=== PATIENT | male | born 1955 | race Caucasian/White ===

== ENCOUNTER 2018-05-24 11:39 | Inpatient (IN) | payer OTHER ==
[2018-05-24 12:00] LABS: #Basophils 0.1 thou/uL (0.0-0.2); #Eosinphils 0.1 thou/uL (0.0-0.7); #Lymphocytes 1.1 thou/uL (1.20-3.40); #Monocytes 0.6 thou/uL (0.11-0.59); #Neutrophils 11.7 thou/uL (1.40-6.50); %Basophils 0.9 % (0.0-1.0); %Eosinophils 0.7 % (0.0-10.0); %Neutrophils 86.4 % (42.0-75.0); Hemoglobin 11.7 g/dL (14.0-18.0); Mean Corpuscular HGB CONC 33.7 g/dL (32.0-36.0); Mean Corpuscular Hemoglobin 32.7 pg (27.0-31.0); Mean Platelet Volume 6.6 fL (7.4-10.4); Platelet Count 298 thou/uL (130-400); RBC Distribution Width 11.4 % (11.5-14.5); Red Blood Cell (RBC) Count 3.57 mill/uL (4.70-6.10); White Blood Cell (WBC) Count 13.6 thou/uL (4.8-10.8)
[2018-05-24] MEDS ORDERED: Morphine 4 MG/ML VIAL ONE ×2 (12:12→13:45)
[2018-05-24 12:16] LABS: Anion Gap 13 mmol/L (10-20); BUN (Urea Nitrogen) 31 mg/dL (8.4-25.7); Calc. Creatinine Clearance 0 mL/min (70-130); Calcium 9.1 mg/dL (7.8-10.44); Carbon Dioxide 21 mmol/L (23-31); Chloride 109 mmol/L (98-107); Estimated GFR-MDRD 37; Glucose 151 mg/dL (80-115); Potassium 4.1 mmol/L (3.5-5.1); Sodium 139 mmol/L (136-145)
[2018-05-24] MEDS ORDERED: Lorazepam 2 MG/ML VIAL ONE (12:42)
[2018-05-24] MEDS ORDERED: Dexamethasone 10 MG/ML VIAL ONE (12:55)
--- NOTE | 2018-05-24 13:34 | CT ---
CT CERVICAL SPINE WITH SEGUNDO AND SAGITTAL REFORMATIONS: HISTORY: Level II trauma. FINDINGS: Degenerative changes are present in the cervical spine. No acute fracture or subluxation is identifi ed. No facet malalignment is seen. Discussed over the telephone with the ER physician, Dr. Stoney Salinas at 12:23 p.m. CODE JOANNE POS: [facility]
--- NOTE | 2018-05-24 13:36 | CT ---
CT BRAIN WITHOUT CONTRAST: HISTORY: Level II trauma. FINDINGS: No evidence of infarct, hemorrhage, midline shift, or abnormal extraaxial fluid collections is seen. The ventricular size is normal and the basilar cisterns patent. The bony calvarium is intact. Ther e is mucosal disease in the paranasal sinuses. IMPRESSION: No CT evidence of acute intracranial process. Discussed over the telephone with ER physician, Dr. Salinas, at 12:23 p.m. CODE CR POS: [facility]
--- NOTE | 2018-05-24 13:39 | CT ---
CT THORACIC SPINE WITH CORONAL AND SAGITTAL REFORMATIONS: HISTORY: Level II trauma. FINDINGS: There is a 1 cm low-density lesion in the left lobe of the thyroid gland which would be better evalua georges with an ultrasound. There are degenerative changes in the thoracic spine. No compression fracture or subluxation is seen . No facet malalignment is noted. On a single image (image 24 series 401), there is a lucency in the right superior articular process o f T12 which could represent a nondisplaced fracture. The visualized lung bennett are clear. Discussed over the telephone with ER physician, Dr. Stoney Salinas at 12:23 p.m. CODE JOANNE POS: [facility]
--- NOTE | 2018-05-24 14:48 | HP ---
DATE OF ADMISSION: 05/24/2018 REQUESTING PHYSICIAN: Dr. Salinas. ATTENDING SURGEON: Dr. Smalls. CONSULTATION: Neurosurgery, Dr. Carpenter. HISTORY OF PRESENT ILLNESS: The patient is a 62-year-old man who was in a deer stand appro ximately 10 feet up when he was trying to come down and started to fall. He was able to slow himself , but still end up landing and striking his forehead on what he believes was the ground hyperextendin g his neck. He had a period of approximately 30 minutes of paralysis of his upper and lower extremit ies. His lower extremities regained function. He was able to get help and was brought to the emerge ncy department where he underwent evaluation and examination and was noted to have likely central cor d syndrome. His CT of his brain, C-spine did not show any abnormalities. While in the emergency mary m, he did start to have function return to his upper extremities with extreme hyperesthesias noted al so. ALLERGIES: None. CURRENT MEDICATIONS: Aspirin, allopurinol, atorvastatin, fenofibrate, glucosamine, Humalog, Meloxica m, metoprolol, [place], promethazine. PAST MEDICAL HISTORY: Diabetes, hyperlipidemia, hypertension, chronic kidney disease, kidney stones. PAST SURGICAL HISTORY: Cardiac stent. SOCIAL HISTORY: The patient lives at home with his spouse. He denies drug, tobacco or alcohol use. REVIEW OF SYSTEMS: Ten-point review of system is negative, unless otherwise stated. PHYSICAL EXAMINATION: VITAL SIGNS: Blood pressure 117/73, heart rate 72, respirations 16, oxygen saturation is 97% on room air, temperature 98.2. GENERAL: The patient was actually examined in the MRI area. He was awake, alert, and oriented and o nly unclear about the details surrounding how long he may have or if he had any loss of consciousness . Otherwise, his [place] coma scale was 15. HEENT: Head: Patient has contusion to his forehead. Eyes: Extraocular motion intact. PERRLA bila terally. Ears are atraumatic without discharge. Nose is atraumatic with discharge. Oropharynx is c lear. NECK: Immobilized in a cervical collar which we will change to an [place] collar. LUNGS: Clear to auscultation with good inspiratory and expiratory effort. HEART: Regular rate and rhythm. ABDOMEN: Soft, flat, nontender with active bowel sounds. GENITOURINARY: Pelvis is stable. EXTREMITIES: The patient has 5/5 strength in his lower extremities. All extremities have capillary refill less than 3 seconds and 2+ pulses. The upper extremities have 3-4/5 strength, but has signifi cant hyperesthesias. Even gentle touch is very painful to the patient. BACK: By report is atraumatic and nontender. LABORATORY DATA: White blood cell count 13.6, hemoglobin 11.7, hematocrit 34.7, platelets 298. [place] um 139, potassium 4.1, chloride 109, CO2 21, BUN 31, creatinine 1.84, glucose 151. RADIOGRAPHIC FINDINGS: CT of the brain without contrast showed no evidence of intracranial process. CT of the C-spine without contrast shows degenerative changes are present in the cervical spine, no acute fracture or subluxation is identified. CT of the thoracic spine shows degenerative changes, no compression fracture or subluxation is seen. No facet malalignment is noted. Results of cervical a nd thoracic spine MRIs are pending. ASSESSMENT AND PLAN: 1. Status post fall from tree stand approximately 10 feet. 2. Forehead contusion. 3. Transient global paralysis, resolving. 4. Likely a central cord contusion. Plan will be to admit the patient to the surgical floor. He has been given one dose of Decadron in [facility] emergency department. This will be continued upstairs. We will also start him on pain control to include gabapentin and await definitive plan from Neurosurgery. The evaluation, examination, labora tory and radiographic findings will be discussed with Dr. Smalls after this dictation. The patient wa s also evaluated by Dr. Carpenter's PA, Dahlia Sykes prior to going to the surgical floor.
[2018-05-24 15:13] VITALS: BMI 28.3
[2018-05-24] MEDS ORDERED: Dextrose 5% in Water 1,000 ML IV PRN (15:14)
[2018-05-24] MEDS ORDERED: Dextrose 50% Abboject 50 ML SYRINGE SLOW IVP PRN (15:14)
[2018-05-24] MEDS ORDERED: Ondansetron ODT 4 MG TAB PO PRN (15:14)
[2018-05-24] MEDS ORDERED: Ondansetron PF 4 MG/2 ML Vial IVP PRN (15:14)
--- NOTE | 2018-05-24 15:31 | MRI ---
MRI THORACIC SPINE PERFORMED WITHOUT CONTRAST ENHANCEMENT: HISTORY: The patient presented to the emergency department with a fall while getting down from an elevated cinda r stand. Landed on head. Unable to move arms and legs for approximately 30 minutes. Still with per sistent tingling. FINDINGS: The thoracic vertebral bodies are normal in height. The disk spaces all appear well preserved, witho ut any significant arthritic change. I do not see any abnormal marrow edema change. No signs of any compression fractures. The cord is normal in caliber and appears to be of normal signal change. Th ere is no canal or foraminal stenosis. No paravertebral soft tissue findings. IMPRESSION: Unremarkable MRI of the thoracic spine. POS: [facility]
[2018-05-24 15:41] LABS: INR-International Normal Ratio 1.1; Prothrombin Time 13.9 SEC (12.0-14.7)
[2018-05-24] MEDS ORDERED: Gabapentin 300 MG CAP PO SCH (15:45)
--- NOTE | 2018-05-24 15:46 | MRI ---
MRI OF CERVICAL SPINE PERFORMED WITHOUT CONTRAST ENHANCEMENT: HISTORY: Patient with a fall with trauma and neck pain. Numbness and tingling in arms and legs immediately af ter fall. COMPARISON: A CT examination done earlier today. The vertebral bodies maintain normal height and disk space height appears fairly well maintained. Th ere is evidence of a soft tissue injury. This includes a small collection of prevertebral fluid dens ity which is probably representing some blood products. It has somewhat mixed signal change on the T 1 sequence. This extends from a C2 to the C5 level. There is evidence of posterior soft tissue inju ry with evidence of injury of the interspinous ligaments at C2-3, C3-4, C4-5, and C5-6. These change s appear more right-sided. There is some mild increased signal change within the cord from the C2-3 to the C5-6 level. C2-3: Unremarkable. C3-4: There is a posterior osteophytic bar at this level. There is a mild degree of canal stenosis and mild left foraminal narrowing. C4-5: There is more prominent posterior osteophytic change at this level with fairly severe canal st enosis related to this broad-based posterior ossific bar. This is slightly more right-sided . There is severe right and moderately severe left foraminal narrowing. C5-6: The canal shows a mild to moderate degree of stenosis with posterior osteophytic change. Ther e is bilateral foraminal narrowing which is worse on the right. C6-7: No significant canal or foraminal stenosis at this level. C7-T1: Unremarkable. IMPRESSION: Evidence of fairly extensive soft tissue injury. There are some prevertebral soft tissue changes whi ch probably represent some minimal blood products and there is evidence of fairly extensive posterior soft tissue injury. This includes injury at the interspinous ligament level at the C2-3, C3-4, C4-5 , and C5-6 levels. Also edema changes which are more right-sided and around the right-sided facets a t these levels. There is also some somewhat inhomogeneous but increased signal change within the cor d which begins at approximately C2-3 and goes to approximately C5-6 suggesting some element of cord c ontusion. There is canal stenosis which is particularly severe at the C5-6 level related to prominen t posterior osteophytic bar. POS: [facility]
[2018-05-24] MEDS: Sodium Chloride 0.9% 1,000 ML IV SCH (15:47)
[2018-05-24] MEDS ORDERED: Morphine 2 MG/ML SYRINGE IVP PRN (16:00)
[2018-05-24] MEDS ORDERED: Ketorolac Tromethamine 30 MG/ML VIAL IVP PRN (17:03)
[2018-05-24] MEDS: Acetaminophen 1,000 MG in Premix Bag 1 BAG IVPB SCH ×2 (17:20→22:22)
[2018-05-24] MEDS: Dexamethasone 4 mg/ml Vial SLOW IVP SCH (17:21)
--- NOTE | 2018-05-24 18:37 | CON ---
DATE OF CONSULTATION: 05/24/2018 ATTENDING PHYSICIAN: Dr. Jaren Carpenter. HISTORY OF PRESENT ILLNESS: The patient is a 62-year-old male with a past medical history of coronary artery disease, acute WA on 81 mg aspirin, hypertension, hyperlipidemia, type 2 diabetes who presented to the emergency department per EMS after a fall from a deer stand. The patient reports he was getting out of the deer stand when he attempts to grab something and lost his footing, causing him to fall and land on his head. He reports initially after this injury, he was unable to move his arms or legs for approximately 30 minutes. Since then he has regained function and sensation to his lower extremities but continues to have weakness, burning sensation, and hypersensitivity to the upper extremities. CT of the head and cervical spine were negative for acute changes; however, he does have significant degenerative changes at C4-C5 and C5-C6 on the CT. MRI of the cervical spine was also done which was notable for T2 signal changes from C2-C6 with evidence of cord contusion and central canal stenosis which is most pronounced at C4-5 and C5-6. PAST MEDICAL HISTORY: Hypertension, hyperlipidemia, diabetes, coronary artery disease with prior acute WA. PAST SURGICAL HISTORY: Cardiac stents. SOCIAL HISTORY: The patient does not smoke, drink or use any drugs. REVIEW OF SYSTEMS: Per HPI. ALLERGIES: The patient has no known drug allergies. PHYSICAL EXAMINATION: VITAL SIGNS: Stable. GCS of 15. Awake, alert, in no acute distress. HEAD: The patient has an abrasion to the apex of the head. EYES: PERRLA. Extraocular movements intact. ENT: Oral mucosa is pink, intact and moist. Patient has a normal voice. NECK: He is currently wearing a rigid cervical collar. I did not attempt to remove or palpate the C spine considering his underlying injury. RESPIRATORY: He has symmetric chest expansion, no evidence of dyspnea. CARDIOVASCULAR: Regular rate and rhythm. MUSCULOSKELETAL: He has free active range of motion of the lower extremities, 5 /5 strength to lower extremities. In the upper extremities, he is generally weak throughout but he is able to java integration developer, flex and extend at the elbow and lift his arms overhead. His weakness throughout is 4/5. He is hyporeflexive throughout. Negative Gage's. Negative clonus. NEURO: A and O x4. He is hypersensitive to light touch in the upper extremities. He is weak in the upper extremities 4/5. ASSESSMENT AND PLAN: This is a 62-year-old male status post mechanical fall with new upper extremity pain, weakness, and sensation changes and evidence of central cord syndrome on MRI. He has been given 10 of Decadron in the emergency department and will continue this at 4mg Q6h. He has been placed in an [place] collar which we have recommended that he wear it all times. He will be admitted to the Trauma Service for pain control and likely need for inpatient rehabilitation at some point. Dr. Carpenter is in agreement and will also see the patient. NAJMA
--- NOTE | 2018-05-24 18:56 | HP ---
CHIEF COMPLAINT: Fall. HISTORY: A 62-year-old male who was in a deer stand at approximately 10 feet from the ground when he slid down fell. He struck a foot pole at about 5 feet down that punctured his upper left thigh, the n fell another 5 foot hyperextending his neck. He was paralyzed for about 20-30 minutes, regained hi s sensation in his lower extremities, but has developed very severe hyperesthesias and pain in the up per extremities, shoulder and neck. PAST MEDICAL HISTORY: Significant for hypertension, diabetes, chronic renal insufficiency and hyperl ipidemia. He has had a history of myocardial infarction last year. PAST SURGICAL HISTORY: He has had leg surgery, kidney stone surgery, had a coronary stent last year. MEDICATIONS: Aspirin, allopurinol, atorvastatin, fenofibric, glucosamine, Humalog, Meloxicam, metopr olol, [place], and promethazine. ALLERGIES: No known drug allergies. 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 No tobacco. He is . Social alcohol. FAMILY HISTORY: Diabetes and strokes. PHYSICAL EXAMINATION: VITAL SIGNS: Temperature 98.1, pulse 86, blood pressure 153/90. GENERAL APPEARANCE: He is a well-developed, well-nourished male. He is lying very still. He is lara ke and alert, GCS of 15. HEENT: He has some abrasions to his forehead. He has male pattern baldness. Pupils equal, round, a nd reactive. Extraocular motor intact. Pharynx is clear. Good dentition. NECK: Supple, no thyroid masses. He is in a cervical collar. His trachea is midline. CHEST: Unremarkable. LUNGS: Clear. HEART: Regular rate and rhythm. ABDOMEN: Soft, nondistended and nontender. Pelvis is unremarkable. Circumcised male, no blood at t he meatus. EXTREMITIES: Upper extremities any motion induces severe pain in both upper extremities. Lower extr emities, he has got 1.5 cm deep puncture wound of the posterior upper thigh. It is not currently ble eding at this time. LABORATORY DATA AND IMAGING DATA: White count 13.6, hemoglobin and hematocrit 11 and 34, platelet co unt 298. Electrolytes; elevated glucose of 151, creatinine 1.84. CT of the brain negative. CT of C -spine negative. CT of the thoracic spine, questionable T12 fracture, nondisplaced. ASSESSMENT: Possible central cord contusion. Plan per Neurosurgery MRI.
[2018-05-24] MEDS: Morphine 4 MG/ML VIAL SLOW IVP PRN ×3 (19:24→22:21)
[2018-05-24] MEDS: Gabapentin 300 MG CAP PO SCH (20:53)
[2018-05-24] MEDS: Tamsulosin HCl 0.4 MG CAP PO SCH (20:54)
[2018-05-24] MEDS: Insulin Regular 300 UNITS/3 ML VIAL SC PRN (20:54)
[2018-05-25] MEDS: Morphine 4 MG/ML VIAL SLOW IVP PRN ×8 (00:20→21:02)
[2018-05-25] MEDS: Dexamethasone 4 mg/ml Vial SLOW IVP SCH ×3 (00:20→17:46)
[2018-05-25] MEDS: Sodium Chloride 0.9% 1,000 ML IV SCH (04:43)
[2018-05-25] MEDS: Acetaminophen 1,000 MG in Premix Bag 1 BAG IVPB SCH (05:38)
[2018-05-25 05:46] LABS: Anion Gap 10 mmol/L (10-20); BUN (Urea Nitrogen) 40 mg/dL (8.4-25.7); Calc. Creatinine Clearance 40 mL/min (70-130); Calcium 8.5 mg/dL (7.8-10.44); Carbon Dioxide 23 mmol/L (23-31); Chloride 107 mmol/L (98-107); Estimated GFR-MDRD 30; Glucose 158 mg/dL (80-115); Magnesium 1.3 mg/dL (1.6-2.6); Phosphorus 2.2 mg/dL (2.3-4.7); Potassium 4.3 mmol/L (3.5-5.1); Sodium 136 mmol/L (136-145)
[2018-05-25 05:53] LABS: #Lymphocytes 0.6 thou/uL (1.20-3.40); #Monocytes 0.2 thou/uL (0.11-0.59); #Neutrophils 8.8 thou/uL (1.40-6.50); %Basophils 0.1 % (0.0-1.0); %Eosinophils 0.2 % (0.0-10.0); %Lymphocytes 5.8 % (21.0-51.0); %Monocytes 2.2 % (0.0-10.0); %Neutrophils 91.8 % (42.0-75.0); Hemoglobin 10.3 g/dL (14.0-18.0); Mean Corpuscular HGB CONC 33.9 g/dL (32.0-36.0); Mean Corpuscular Hemoglobin 32.9 pg (27.0-31.0); Mean Corpuscular Volume 97.2 fL (78.0-98.0); Mean Platelet Volume 6.7 fL (7.4-10.4); Platelet Count 254 thou/uL (130-400); RBC Distribution Width 11.4 % (11.5-14.5); Red Blood Cell (RBC) Count 3.14 mill/uL (4.70-6.10); White Blood Cell (WBC) Count 9.6 thou/uL (4.8-10.8)
[2018-05-25] MEDS: Gabapentin 300 MG CAP PO SCH ×3 (07:59→21:02)
[2018-05-25] MEDS: Atorvastatin Calcium 40 MG TAB PO SCH (07:59)
[2018-05-25] MEDS: Fenofibrate Nanocrystallized 145 MG TAB PO SCH (07:59)
[2018-05-25] MEDS: Allopurinol 300 MG TAB PO SCH (07:59)
[2018-05-25] MEDS ORDERED: Sodium Phosphate 20 MMOL, Magnesium Sulfate 2 GM in Sodium Chloride 0.9% 250 ML 250 ML IVPB SCH (08:30)
--- NOTE | 2018-05-25 08:44 | CON ---
DATE OF SERVICE: 04/24/2018 SUBJECTIVE: The patient was seen and examined and agreed with Dahlia Sykes's evaluation on 05/24/2018. The patient is a 62-year-old man with coronary artery disease on aspirin, who fell out of a deer stand 10 feet, striking his head. He reports 30 minutes of quadriparesis, which gradually improved upon presentation in the emergency room. Currently, he seems to have full strength and sensation in the lower extremities and has reasonably good motor function in the upper extremities level. The hands do still seem impaired to me. He has burning dysesthesias of the upper extremities which is also improved dramatically. He remains on Decadron. The MRI scan shows significant cervical stenosis most pronounced between C4 and C6. There is no evidence of acute bony injury. On the MRI scan, he has obvious contusion to the spinal cord. IMPRESSION AND PLAN: Spinal cord contusion and central cord syndrome related to preexisting cervical stenosis with a superimposed trauma. He is having an excellent recovery so far and I expect this will continue with respect to the central cord syndrome. Given the extent of the cervical stenosis, I do recommend decompression to promote recovery and prevent recurrence. I would recommend accomplishing this by anterior and posterior C4 through C6 decompression and fusion. I discussed the indications, risks, benefits, and alternatives of the procedure with the patient and his family. They expressed understanding and wished to proceed. We will plan to proceed on Friday. We will reduce his Decadron and hold his aspirin. NAJMA
[2018-05-25] MEDS ORDERED: GLUCOSAMINE SULFATE 2000 MG PO SCH (09:00)
[2018-05-25] MEDS ORDERED: Acetaminophen 500 MG TAB PO PRN (09:43)
--- NOTE | 2018-05-25 09:57 | PRG ---
DATE OF SERVICE: 05/25/2018 HISTORY OF PRESENT ILLNESS: Mr. Markham is a 62-year-old man with a cervical spine cord co ntusion and resultant central cord syndrome. SUBJECTIVE: This morning, the patient is awake and alert. [place] coma scale is 15. He reports imp roving function of his extremities. He had significant paresthesia yesterday involving the upper ext remities that is resolving. He rates his pain this morning at 5/10. OBJECTIVE: VITAL SIGNS: Today includes blood pressure 135/83, pulse is 82, respiratory rate is 20, temperature is 97.4 degrees Fahrenheit, oxygen saturation is 96% on room air. HEENT: Pupils equal, round, and reactive to light and accommodation. Extraocular muscles are intact bilaterally. No sclerae icterus present. HEART: Reveals regular rate and rhythm, no murmurs or gallops auscultated. CHEST: Clear to auscultation bilaterally. Breathing is regular and unlabored. ABDOMEN: Soft, nontender, nondistended. EXTREMITIES: Reveals 2+ radial and pedal pulses bilaterally. No ankle edema is present. MUSCULOSKELETAL: Reveals 5/5 muscle strength in bilateral lower extremities. EXTREMITIES: Upper extremities 3/5 and improving. LABORATORY DATA: Today includes a CBC with 9600 white blood cells, hemoglobin and hematocrit stable at 10.3 and 30.5 respectively. Platelet count is 254,000. Metabolic profile: Sodium 136, potassium is 4.3, chloride is 107, bicarbonate is 23, BUN 40, creatin ine is 2.24, glucose is 158, magnesium 1.3, phosphorus is 2.2. IMPRESSION: 1. Post-injury day #1 status post fall. 2. Cervical spinal cord contusion with central cord syndrome. 3. Acute hypoalbuminemia. 4. Acute hypophosphatemia. PLAN: 1. Correct abnormal electrolytes. 2. Continue to increase activity per physical and occupational therapy. 3. Anticipate cervical spine decompression and fusion per Neurosurgery in the next few days.
[2018-05-25] MEDS: traMADol HCl 50 MG TAB PO SCH ×2 (10:35→17:45)
[2018-05-25] MEDS: Insulin Regular 300 UNITS/3 ML VIAL SC PRN ×2 (13:08→15:43)
[2018-05-25] MEDS: Tamsulosin HCl 0.4 MG CAP PO SCH (21:02)
[2018-05-26] MEDS: Morphine 4 MG/ML VIAL SLOW IVP PRN ×10 (00:21→21:13)
[2018-05-26] MEDS: traMADol HCl 50 MG TAB PO SCH ×3 (02:01→17:04)
[2018-05-26 06:10] LABS: #Lymphocytes 1.4 thou/uL (1.20-3.40); #Monocytes 0.6 thou/uL (0.11-0.59); #Neutrophils 7.9 thou/uL (1.40-6.50); %Basophils 0.4 % (0.0-1.0); %Eosinophils 0.2 % (0.0-10.0); %Lymphocytes 13.5 % (21.0-51.0); %Monocytes 6.3 % (0.0-10.0); %Neutrophils 79.6 % (42.0-75.0); Hemoglobin 9.6 g/dL (14.0-18.0); Mean Corpuscular HGB CONC 33.9 g/dL (32.0-36.0); Mean Corpuscular Hemoglobin 33.2 pg (27.0-31.0); Mean Corpuscular Volume 97.9 fL (78.0-98.0); Mean Platelet Volume 6.8 fL (7.4-10.4); Platelet Count 233 thou/uL (130-400); RBC Distribution Width 11.5 % (11.5-14.5); Red Blood Cell (RBC) Count 2.89 mill/uL (4.70-6.10)
[2018-05-26] MEDS: Dexamethasone 4 mg/ml Vial SLOW IVP SCH ×2 (06:12→17:03)
[2018-05-26 06:18] LABS: Anion Gap 9 mmol/L (10-20); BUN (Urea Nitrogen) 45 mg/dL (8.4-25.7); Calc. Creatinine Clearance 46 mL/min (70-130); Calcium 8.3 mg/dL (7.8-10.44); Carbon Dioxide 25 mmol/L (23-31); Chloride 106 mmol/L (98-107); Estimated GFR-MDRD 35; Glucose 117 mg/dL (80-115); Magnesium 2.1 mg/dL (1.6-2.6); Phosphorus 2.9 mg/dL (2.3-4.7); Potassium 4.3 mmol/L (3.5-5.1); Sodium 136 mmol/L (136-145)
[2018-05-26] MEDS ORDERED: Gabapentin 300 MG CAP PO SCH (09:00)
[2018-05-26] MEDS: Fenofibrate Nanocrystallized 145 MG TAB PO SCH (09:13)
[2018-05-26] MEDS: Allopurinol 300 MG TAB PO SCH (09:14)
[2018-05-26] MEDS: Atorvastatin Calcium 40 MG TAB PO SCH (09:14)
[2018-05-26] MEDS: Gabapentin 300 MG CAP PO SCH (09:23)
--- NOTE | 2018-05-26 11:55 | PRG-2 ---
DATE OF SERVICE: 05/26/2018 HPI: Mr. Markham is a 62-year-old male with a cervical spine cord contusion and central cord syndrome. SUBJECTIVE: This morning, the patient is awake and alert. GCS 15. The patient still complains of pain in his upper extremities. He continues to have significant paresthesias. The patient's pain is being controlled with gabapentin. Patient complained of hesitancy with urination. OBJECTIVE: VITAL SIGNS: Temperature 97.8, pulse 77, respirations 18, O2 sat 95 on room air , BP 131/83. HEENT: Pupils equal, round and reactive to light and accommodation. Extraocular muscles intact bilaterally. No scleral icterus. CARDIOVASCULAR: Regular rate and rhythm. No murmurs, rubs or gallops. RESPIRATORY: Clear to auscultation bilaterally. Bilateral symmetrical chest rise. ABDOMEN: Soft, nontender, nondistended. EXTREMITIES: 2+ radial and pedal pulses bilaterally. No ankle edema present. MUSCULOSKELETAL: 5/5 muscle strength in bilateral lower extremities. Upper extremities, 3/5 strength and improving. LABORATORY DATA: WBCs 10, hemoglobin 9.6, hematocrit 28.3, platelet count 233, 000. Sodium 136, potassium 4.3, BUN 45, creatinine 1.93. Calcium, phosphorus and magnesium within normal limits. ASSESSMENT: 1. Post injury day number 2, status post fall. 2. Cervical spinal cord contusion with central cord syndrome. 3. Acute hypoalbuminemia. 4. Acute hypophosphatemia, resolved. PLAN: We will continue to correct abnormal electrolytes as needed. We will continue to increase activity per physical and occupational therapy. Will continue to closely monitor urinary output. Patient started on flomax. Bladder scan nml. Started patient on lyrica for parasthesia pain in upper extremities. Per Neurosurgery, anticipate cervical spine decompression and fusion tomorrow. We will continue to follow the patient and continue with pain control management. The patient was seen and examined by Dr. Devine during morning rounds. The plan was discussed with the patient and family at the bedside. Dr. Devine answered their questions. NAJMA
--- NOTE | 2018-05-26 12:46 | PQF ---
DATE: 05-26-18 ATTN: DR. RED BOUDREAUX / DR. BETHANY BEARDEN Please exercise your independent, professional judgment in responding to the clarification form. Clinical indicators are provided on the bottom of this form for your review Please check appropriate box(s): [ ] Acute Renal Failure (ARF) / Acute Kidney Injury (MIKAELA) [ X ] Acute on Chronic Renal Failure please specify Stage of CKD __III (see below) [ ] CKD without ARF/MIKAELA please specify Stage of CKD [ ] Other diagnosis [ ] Unable to determine In addition, please specify: Present on Admission (POA): [ X] Yes [ ] No [ ] Unable to determine National Kidney Foundation Guidelines for CKD Staging Stage I Kidney damage with normal or increased GFR GFR > 90 Stage II Kidney damage with mildly decreased GFR GFR 60-89 Stage III Kidney damage with moderately decreased GFR GFR 30-59 Stage IV Kidney damage with severely decreased GFR GFR 16-29 Stage V Kidney failure GFR<15 ESRD End Stage Renal Disease On dialysis Acute Renal Failure/Acute Kidney Failure defined as: Increases in SCr by (>) 0.3 mg/dl within 48 hours OR- Increases in SCr by (>) 1.5 times baseline, known or presumed to have occurred within the prior 7 days OR- Urine volume < 0.5 ml/kg/hour for 6 hours (KDIGO supplement 2012 for RIFLE/LULÚ criteria) For continuity of documentation, please document condition throughout progress notes and discharge summary. Thank You. CLINICAL INDICATORS - SIGNS / SYMPTOMS / LABS ER: H/O DM, 36% KIDNEY FUNCTION, MS, HTN H&P: H/O DM, HLD, HTN, CKD, KIDNEY STONES GFR: 05-24-18: 37 05-25-18: 30 05-26-18: 35 CREATININE: 05-24-18: 1.84 05-25-18: 2.2 05-26-18: 1.93 BUN: 05-24-18: 31 05-25-18: 40 18: 45 RISK FACTORS: ER: HX DM, 36% KIDNEY FUNCTION, MS, KIDNEY STONES, HTN TREATMENTS: MAR: 05-24-18: NS IVF (This form is maintained as a part of the permanent medical record) 2014 [employer]. All Rights Reserved SID [email or web address] Office: [phone] [facility]
[2018-05-26] MEDS: Insulin Regular 300 UNITS/3 ML VIAL SC PRN ×3 (13:00→22:39)
[2018-05-26] MEDS: Pregabalin 75 MG CAP PO SCH (21:11)
[2018-05-26] MEDS: Tamsulosin HCl 0.4 MG CAP PO SCH (21:15)
[2018-05-27] MEDS: Morphine 4 MG/ML VIAL SLOW IVP PRN ×7 (00:35→20:10)
[2018-05-27] MEDS: traMADol HCl 50 MG TAB PO SCH ×2 (02:49→10:00)
[2018-05-27] MEDS: Dexamethasone 4 mg/ml Vial SLOW IVP SCH ×2 (05:47→17:26)
[2018-05-27] MEDS ORDERED: Sodium Chloride 0.9% 10 ML ONE (06:24)
[2018-05-27] MEDS ORDERED: Bacitracin Zinc Ointment 30 gm TUBE ONE (06:41)
[2018-05-27] MEDS ORDERED: CEFAZOLIN 2 GM/50 ML BAG ONE (06:44)
[2018-05-27] MEDS ORDERED: Midazolam HCl 2 mg/2 ml Vial ONE (07:07)
[2018-05-27] MEDS ORDERED: Fentanyl 100 MCG/2 ML VIAL ONE ×4 (07:07→10:29)
[2018-05-27] MEDS ORDERED: Metoclopramide HCl 10 MG/2 ML VIAL ONE (08:19)
[2018-05-27] MEDS ORDERED: Glycopyrrolate 0.2 MG/ML 5 ML SYRINGE ONE (08:19)
[2018-05-27] MEDS ORDERED: Ondansetron PF 4 MG/2 ML Vial ONE (08:19)
[2018-05-27] MEDS ORDERED: Lidocaine 1% PF 5 ML VIAL ONE (08:19)
[2018-05-27] MEDS ORDERED: PHENYLEPHRINE-NS 100 MCG/ML 10 ML SYRINGE ONE (08:19)
[2018-05-27] MEDS ORDERED: PROPOFOL 200 MG/20 ML VIAL ONE (08:19)
[2018-05-27] MEDS ORDERED: Phenylephrine HCL 10 MG/ML VIAL ONE (08:55)
[2018-05-27] MEDS ORDERED: Promethazine HCl 25 MG/ML VIAL SLOW IVP PRN (10:10)
[2018-05-27] MEDS ORDERED: Meperidine HCl/PF 25 MG/ML VIAL SLOW IVP PRN (10:10)
[2018-05-27] MEDS ORDERED: Ondansetron HCl/PF 4 MG/2 ML Vial IVP PRN (10:10)
[2018-05-27] MEDS ORDERED: PACU-Morphine 4MG/ML VIAL SLOW IVP PRN (10:10)
[2018-05-27] MEDS ORDERED: Promethazine HCl 25 MG/ML VIAL IM PRN (10:10)
[2018-05-27] MEDS ORDERED: Morphine Sulfate 2 MG/ML SYRINGE SLOW IVP PRN (10:10)
[2018-05-27] MEDS ORDERED: HYDROmorphone 2 MG/ML VIAL SLOW IVP PRN (10:10)
--- NOTE | 2018-05-27 11:15 | OP ---
DATE OF PROCEDURE: 05/27/2018 SURGEON: Jose Carpenter M.D. SHEETER MACHINE OPERATOR: Bell Antony PROCEDURE: Anterior cervical discectomy C4-5 and C5-6, interbody arthrodesis, intravertebral biomech anical device, local morselized autograft, demineralized bone matrix, anterior titanium instrumentati on C4-C6, posterior approach C4-C6 laminectomies, posterolateral arthrodesis C4-C6, demineralized bon e matrix, local morselized autograft, lateral mass screws C4-C6. PROCEDURE IN DETAIL: The patient was brought to the operating room and intubated. He was positioned supine with head in modest extension on a gel-filled donut. Incision was made in the right precervi fidel area and dissecting medial to the sternocleidomastoid muscle, identified the anterior cervical sp ine and our level was confirmed by x-ray. We debrided anterior osteophytes, placed distraction from C4-C6 and using the operating microscope and microdissection techniques, completely decompressed the spinal cord, removing the intravertebral disks beneath the level of the posterior longitudinal ligame nt. The bony endplates were then decorticated for the purpose of arthrodesis and appropriately sized intravertebral biomechanical PEEK device was brought into the field, filled with demineralized bone matrix, local morselized autograft, and tapped into place securely at C4-5 and C5-6. Next, an anteri or plate was brought in the field and secured to C4, C5, and C6 using two 14 mm screws at each level. The wound was then extensively irrigated, immaculate hemostasis was secured, and the wound was clos ed in anatomic layers. The patient was then rolled in the prone position on gel-filled chest rolls. The head fixed in neutral position in the nato headholder. A midline cervical incision was made a nd the level was localized by x-ray. We performed complete C6, complete C5, and complete C4 laminect omies decompressing the spinal cord posteriorly. We next placed lateral mass screws on the right at C4, C5 and C6 connected these to a janelle secured by nuts which were final tightened. The wound was the n extensively irrigated, immaculate hemostasis was secured. A combination of demineralized bone matr ix and local morselized autograft was laid in the left laminar and posterolateral surfaces for the pu rpose of arthrodesis. Vancomycin powder was applied and the wound was then closed in anatomic layers .
[2018-05-27] MEDS: Pregabalin 75 MG CAP PO SCH ×2 (12:47→20:09)
[2018-05-27] MEDS ORDERED: Clopidogrel Bisulfate 75 MG TAB ONE (12:50)
[2018-05-27] MEDS: Fenofibrate Nanocrystallized 145 MG TAB PO SCH (12:56)
[2018-05-27] MEDS: Allopurinol 300 MG TAB PO SCH (12:56)
[2018-05-27] MEDS: Atorvastatin Calcium 40 MG TAB PO SCH (12:56)
[2018-05-27] MEDS ORDERED: traMADol HCl 50 MG TAB PO SCH ×2 (14:00→18:00)
[2018-05-27] MEDS: tiZANidine HCl 4 MG TAB PO PRN ×2 (15:30→22:30)
[2018-05-27] MEDS: Insulin Regular 300 UNITS/3 ML VIAL SC PRN ×2 (16:28→20:51)
[2018-05-27] MEDS ORDERED: HYDROcodone/Acetaminophen 10/325 mg Tablet PO PRN (17:36)
[2018-05-27] MEDS: HYDROcodone/Acetaminophen 10/325 mg Tablet PO PRN ×2 (17:56→22:31)
[2018-05-27] MEDS: Tamsulosin HCl 0.4 MG CAP PO SCH (20:09)
[2018-05-27] MEDS: Senokot 8.6 MG TAB PO SCH (20:51)
--- NOTE | 2018-05-27 23:31 | PRG-2 ---
DATE OF SERVICE: 05/27/2018 RESIDENT: Zunilda Harvey MD ATTENDING: Dr. Devine. SUBJECTIVE: This is a 62-year-old male with a cervical spine cord contusion and central cord syndrome. This morning, the patient was taken back for a decompression procedure with Dr. Carpenter. The patient had just returned from surgery. The patient was complaining of mild pain in the upper extremities. No other complaints or concerns. OBJECTIVE: VITAL SIGNS: Temperature 98.6, pulse 77, respirations 16, O2 saturations 98% on room air, BP 164/97. HEENT: Normocephalic, atraumatic. Pupils are equal, round, reactive to light and accommodation. Extraocular muscles are intact bilaterally. No scleral icterus present. C-collar in place. CARDIOVASCULAR: Regular rate and rhythm. No murmurs, rubs, or gallops. RESPIRATORY: Clear to auscultation bilaterally. Bilateral symmetrical chest rise, nonlabored breathing. ABDOMEN: Soft, nontender, nondistended. EXTREMITIES: 2+ radial and pedal pulses bilaterally. No ankle edema present, 5 /5 muscle strength in bilateral lower extremities, upper extremity continued to be 3/5 strength and improving, sensation intact in all extremities. LABORATORY DATA: No new labs for today. ASSESSMENT: 1. Post-injury day #3, status post fall. 2. Cervical cord contusion with central cord syndrome, status post decompression procedure. 3. Acute hypoalbuminemia. 4. Acute hypophosphatemia, resolved. PLAN: We will follow up with the patient's pain control, status post decompression procedure. Postoperatively, we will begin physical and occupational therapy. We will continue to correct abnormal electrolytes as needed. Pain control, pulmonary toilet, bowel regimen, gastritis and VTE prophylaxis.. We will follow Neurosurgery's recommendations. The patient's plan above was discussed with Dr. Devine who was in agreement. The patient was seen and examined by me and all questions were asked and answered. NAJMA
[2018-05-28] MEDS: Morphine 4 MG/ML VIAL SLOW IVP PRN ×2 (00:15→04:52)
[2018-05-28] MEDS: HYDROcodone/Acetaminophen 10/325 mg Tablet PO PRN ×5 (03:01→20:27)
[2018-05-28] MEDS: tiZANidine HCl 4 MG TAB PO PRN ×2 (04:53→11:23)
[2018-05-28] MEDS: Dexamethasone 4 mg/ml Vial SLOW IVP SCH (05:39)
--- NOTE | 2018-05-28 07:40 | PRG ---
DATE OF SERVICE: 05/28/2018 The patient is a 62-year-old male with a central cord syndrome, status post mechanical fall from a deer stand status which required C4-C6 anterior and posterior decompression and fusion, He is postoperative day #1. Overnight, his pain is well controlled with p.o. medications. He has some mild dysphagia, but is otherwise tolerating a regular diet. Kong catheter was placed during surgery. Still complains of some aching in the UEs which is unchanged since surgery. RIGOBERTO drain had 70 mL out overnight. The patient is sitting comfortably in bed in no acute distress. He has free active range of motion of all extremities. He is slightly weak in the upper extremities which remains unchanged. Dressings are dry and anterior incision is soft. We plan to remove the RIGOBERTO drain today. Discontinue his IV antibiotics. We will also discontinue his Decadron. We will continue to mobilize with assistance of Physical Therapy and work on pain control. Possible need for inpatient rehab but closer to his home in [place]. NAJMA
[2018-05-28] MEDS: Senokot 8.6 MG TAB PO SCH ×2 (09:12→20:29)
[2018-05-28] MEDS: Pregabalin 75 MG CAP PO SCH (09:13)
[2018-05-28] MEDS: Cephalexin 250 MG CAP PO SCH ×4 (09:16→20:28)
[2018-05-28] MEDS: Atorvastatin Calcium 40 MG TAB PO SCH (09:17)
[2018-05-28] MEDS: Allopurinol 300 MG TAB PO SCH (09:18)
[2018-05-28] MEDS: Fenofibrate Nanocrystallized 145 MG TAB PO SCH (09:19)
[2018-05-28] MEDS: Polyethylene Glycol 3350 17 GM Packet PO SCH (09:20)
--- NOTE | 2018-05-28 09:42 | PRG ---
DATE OF SERVICE: 05/28/2018 Mr. Markham is doing fairly well. The dysesthesias in his hands are unchanged. He is having signifi cant posterior cervical pain related to the surgery. He can continue to be mobilized and I anticipate he should be able to go home within the next few day s. We will continue his gabapentin for the hand dysesthesias and pain medication for the postoperati ve pain. We will continue with the cervical collar for 6 weeks and I have arranged for a 2 week foll owup.
--- NOTE | 2018-05-28 12:06 | PRG ---
DATE OF SERVICE: 05/28/2018 SUBJECTIVE: Mr. Markham is a 62-year-old man who is post-injury day #4 status post fall from a deer stand up. The patient suffered a cervical spinal cord contusion with resultant central cord syndrome . He is postoperative day #1 today status post anterior and posterior cervical spine decompression a nd fusion. He is awake and alert. His [place] coma scale is 15 and he reports adequate pain control . He has improved movement of bilateral upper extremities. He has no deficits to his lower extremit ies. He is tolerating a general diet. He is passing flatus, but has not had any bowel movement. He is having adequate urinary output. OBJECTIVE: VITAL SIGNS: Today includes blood pressure 119/73, pulse 83, respirations 20, temperature is 98.7 de grees Fahrenheit, oxygen saturation is 95% on room air. HEENT: Pupils equal, round, reactive to light and accommodation. Trachea is midline. He has no sof t cord neck hematoma. HEART: Reveals regular rate and rhythm, no murmurs or gallops auscultated. CHEST: Clear to auscultation bilaterally. Breathing is regular and unlabored. ABDOMEN: Soft, nontender, nondistended. EXTREMITIES: With 2+ radial and pedal pulses bilaterally. No ankle edema is present. MUSCULOSKELETAL: Reveals 5/5 muscle strength bilateral lower extremities. Upper extremity is 4/5. He has better use of his intrinsic muscle. He can make a fist bilaterally; however, he is unable to hold on to a spoon or brush. IMPRESSION: 1. Postoperative day #1, status post anterior and posterior cervical spinal decompression and fusion . 2. Resolving central cord syndrome. PLAN: 1. A Kong catheter will be discontinued. 2. We will increase activity per occupational therapy. 3. Initiate stool softeners. 4. The patient will be encouraged to continue to ambulate to avoid complications of venous thromboem bolism. 5. Anticipate discharge in the few days.
[2018-05-28] MEDS: Insulin Regular 300 UNITS/3 ML VIAL SC PRN (12:39)
[2018-05-28 13:19] LABS: #Lymphocytes 1.1 thou/uL (1.20-3.40); #Monocytes 0.6 thou/uL (0.11-0.59); #Neutrophils 9.2 thou/uL (1.40-6.50); %Basophils 0.4 % (0.0-1.0); %Eosinophils 0.1 % (0.0-10.0); %Lymphocytes 10.2 % (21.0-51.0); %Monocytes 5.6 % (0.0-10.0); %Neutrophils 83.7 % (42.0-75.0); Hemoglobin 10.9 g/dL (14.0-18.0); Mean Corpuscular HGB CONC 33.3 g/dL (32.0-36.0); Mean Corpuscular Hemoglobin 32.6 pg (27.0-31.0); Mean Platelet Volume 6.7 fL (7.4-10.4); Platelet Count 289 thou/uL (130-400); RBC Distribution Width 11.3 % (11.5-14.5); Red Blood Cell (RBC) Count 3.34 mill/uL (4.70-6.10)
[2018-05-28 13:40] LABS: Anion Gap 13 mmol/L (10-20); BUN (Urea Nitrogen) 37 mg/dL (8.4-25.7); Calc. Creatinine Clearance 48 mL/min (70-130); Calcium 9.5 mg/dL (7.8-10.44); Carbon Dioxide 27 mmol/L (23-31); Chloride 99 mmol/L (98-107); Estimated GFR-MDRD 37; Glucose 159 mg/dL (80-115); Magnesium 1.8 mg/dL (1.6-2.6); Phosphorus 3.3 mg/dL (2.3-4.7); Potassium 4.2 mmol/L (3.5-5.1); Sodium 135 mmol/L (136-145)
--- NOTE | 2018-05-28 14:20 | PQF ---
DATE: 05-28-18 ATTN : DR. WILDA SANTIZO Please exercise your independent, professional judgment in responding to the clarification form. Clinical indicators are provided on the bottom of this form for your review Please check appropriate box(s): [ ] Acute Renal Failure (ARF) / Acute Kidney Injury (MIKAELA) [ ] Insignificant Lab Values [ ] Other diagnosis [ ] Unable to determine In addition, please specify: Present on Admission (POA): [ ] Yes [ ] No [ ] Unable to determine National Kidney Foundation Guidelines for CKD Staging Stage I Kidney damage with normal or increased GFR GFR > 90 Stage II Kidney damage with mildly decreased GFR GFR 60-89 Stage III Kidney damage with moderately decreased GFR GFR 30-59 Stage IV Kidney damage with severely decreased GFR GFR 16-29 Stage V Kidney failure GFR<15 ESRD End Stage Renal Disease On dialysis Acute Renal Failure/Acute Kidney Failure defined as: Increases in SCr by (>) 0.3 mg/dl within 48 hours OR- Increases in SCr by (>) 1.5 times baseline, known or presumed to have occurred within the prior 7 days OR- Urine volume < 0.5 ml/kg/hour for 6 hours (KDIGO supplement 2012 for RIFLE/LULÚ criteria) For continuity of documentation, please document condition throughout progress notes and discharge summary. Thank You. CLINICAL INDICATORS - SIGNS / SYMPTOMS / LABS GFR: 05-25-18: 45 05-26-18: 68 05-28-18: 72 CREATININE: 05-25-18: 1.22 05-26-18: 0.86 05-28-18: 0.82 BUN: 05-25-18: 16 05-26-18: 17 05-28-18: 13 ER: H/O RENAL CANCER, DM 2, HTN H&P: H/O LEFT KIDNEY REMOVAL DUE TO KIDNEY CANCER RISK FACTORS: H&P: H/O LEFT KIDNEY REMOVAL DUE TO KIDNEY CANCER, SHE HAD PAIN WHICH RESPONDED TO IBUPROFEN 800MG TAKING Q4-6 HRS NEEDED. ER: H/O RENAL CANCER, DM 2, HTN TREATMENTS: ER: NS IVF (This form is maintained as a part of the permanent medical record) 2014 [employer], [employer]. All Rights Reserved SID [email or web address] Office: [phone] [facility] CENTERJoaquin
[2018-05-28] MEDS: Gabapentin 300 MG CAP PO SCH ×2 (16:15→20:29)
[2018-05-28] MEDS: HYDROcodone/Acetaminophen 10/325 mg Tablet PO SCH ×2 (16:15→20:26)
[2018-05-28] MEDS ORDERED: Bisacodyl 10 MG SUPP PR SCH (16:30)
[2018-05-28] MEDS: Dutasteride 0.5 MG CAP PO SCH (20:28)
[2018-05-28] MEDS: Tamsulosin HCl 0.4 MG CAP PO SCH (20:29)
[2018-05-28] MEDS: Melatonin 3 MG TAB PO SCH (20:30)
[2018-05-29] MEDS: HYDROcodone/Acetaminophen 10/325 mg Tablet PO SCH ×6 (01:10→21:44)
[2018-05-29] MEDS: HYDROcodone/Acetaminophen 10/325 mg Tablet PO PRN ×4 (01:11→18:20)
[2018-05-29] MEDS ORDERED: Dutasteride 0.5 MG CAP PO SCH (09:00)
[2018-05-29] MEDS: Polyethylene Glycol 3350 17 GM Packet PO SCH ×2 (09:15→13:27)
[2018-05-29] MEDS: Atorvastatin Calcium 40 MG TAB PO SCH (09:16)
[2018-05-29] MEDS: Allopurinol 300 MG TAB PO SCH (09:16)
[2018-05-29] MEDS: Cephalexin 250 MG CAP PO SCH ×4 (09:16→21:44)
[2018-05-29] MEDS: Gabapentin 300 MG CAP PO SCH ×3 (09:16→21:45)
[2018-05-29] MEDS: Senokot 8.6 MG TAB PO SCH ×2 (09:16→21:44)
[2018-05-29] MEDS: tiZANidine HCl 4 MG TAB PO PRN (09:17)
[2018-05-29] MEDS: Fenofibrate Nanocrystallized 145 MG TAB PO SCH (10:05)
--- NOTE | 2018-05-29 12:06 | PRG ---
DATE OF SERVICE: 05/29/2018 SUBJECTIVE: Mr. Markham is a 62-year-old male, postop day #2, post-injury day # 5, status post fall from an elevated deer stand suffering a cervical spinal cord contusion with central cord syndrome. He has had anterior and posterior cervical spine decompression and fusion. Patient is in a C-collar. He is awake , alert. GCS is 15. He does report pain to anterior and posterior neck primarily. He has ambulated with PT. Neurosurgery has seen him and recommends 2 week followup. He is tolerating a regular diet, and had a BM this AM. The patient was seen with his at the bedside. OBJECTIVE: Data from today; VITAL SIGNS: Blood pressure of 122/85, temperature is 99.7, O2 sat is 93% on room air, respiratory rate is 20, and heart rate is 86. GENERAL: A 62-year-old male sitting up in a C-collar, slight distress secondary to pain. Alert and oriented to person, place, time, and event. HEENT: Normocephalic. Does have incisions anterior and posterior. NECK: C-collar is in place. Dressings are dry. NECK: No JVD is appreciated. RESPIRATORY: Equal rise and fall. Bilateral breath sounds. Clear to auscultation bilaterally. CARDIOVASCULAR: Regular rate and rhythm, no murmurs. ABDOMEN: Soft and nontender. Pelvis is stable. MUSCULOSKELETAL: Moves extremities well. Does report some slight pain on the left hip. He does have some paresthesias to his hands that have been present since surgery. The patient does have chronic pain and currently takes [place] at home. SKIN: [place], warm and dry. Does have an abrasion noted to the forehead. PSYCHIATRIC: Normal mood and affect. NEUROLOGIC: Alert and oriented to person, place, time, and event. Moves all extremities. Does report paresthesias to the hands. LABORATORY DATA: Today, glucose is 121. IMPRESSION: 1. Postoperative day #2, status post anterior and posterior cervical spine decompression and fusion. 2. Resolving central cord syndrome. 3. Acute traumatic pain. PLAN: Continue to work with occupational and physical therapy. Plan is to discharge home with PT, OT follow up close to their [place]. Continue bowel regimen. Encouraging IS to facilitate air movement and reduce atelectasis, reduce chance for pneumonia. We have offered the patient discharge today; however, they would like to be discharged tomorrow given their [address] and is currently training. We will plan for early discharge tomorrow. The patient does have followup with pain management on Friday. He has Lortab, his home regimen at home and needs no prescriptions per the at the bedside. I have answered all questions of the patient, the patient's at the bedside. I have reviewed the notes from Neurosurgery. This plan was discussed with Dr. Devine, can be updated as needed. NAJMA
[2018-05-29] MEDS: Bisacodyl 10 MG SUPP PR SCH (18:20)
[2018-05-29] MEDS: Melatonin 3 MG TAB PO SCH (21:44)
[2018-05-29] MEDS: Tamsulosin HCl 0.4 MG CAP PO SCH (21:44)
[2018-05-29] MEDS: Dutasteride 0.5 MG CAP PO SCH (21:45)
[2018-05-30] MEDS: HYDROcodone/Acetaminophen 10/325 mg Tablet PO SCH ×3 (01:45→10:20)
[2018-05-30] MEDS: HYDROcodone/Acetaminophen 10/325 mg Tablet PO PRN ×3 (01:46→11:18)
[2018-05-30] MEDS: Fenofibrate Nanocrystallized 145 MG TAB PO SCH (09:32)
[2018-05-30] MEDS: Senokot 8.6 MG TAB PO SCH (09:32)
[2018-05-30] MEDS: Atorvastatin Calcium 40 MG TAB PO SCH (09:32)
[2018-05-30] MEDS: Gabapentin 300 MG CAP PO SCH (09:32)
[2018-05-30] MEDS: Allopurinol 300 MG TAB PO SCH (09:32)
[2018-05-30] MEDS: Cephalexin 250 MG CAP PO SCH (09:32)
[2018-05-30] MEDS: Bisacodyl 10 MG SUPP PR SCH (09:33)
[2018-05-30] MEDS: Polyethylene Glycol 3350 17 GM Packet PO SCH (09:33)
[2018-05-30 12:17] VITALS: BP 123/79; TEMP 98.8
--- NOTE | 2018-06-01 10:20 | ADD-DIS ---
ADDENDUM DISCHARGE DIAGNOSIS: Urinary retention. The patient incidentally was found to have urinary retention and started on medications for this prio r to discharge and then please return to discharge medications. The patient was discharged home on h is home medication regimen to include [place] 10/325 one tab 1-2 tabs q.4-6h for moderate to severe michel n. Additionally, he was provided a prescription for Flomax 0.4 mg at bedtime, #30, Avodart 0.5 mg p. o. at bedtime, #30 and Zanaflex 4 mg q.6 hours p.r.n. for muscle spasm. FOLLOWUP APPOINTMENTS: The patient should follow up with his primary care provider for urinary reten tion and other chronic medical illnesses. He should follow up with Dr. Carpenter in 10-14 days. He d oes not need to follow up formally with Trauma Services. May call our office if any questions. This is merely a summary of the patient's hospitalization. For more in depth information, please see his medical record in its entirety. HOSPITAL COURSE: Mitchel Markham is a 62-year-old male who presented to [facility] sta tus post falling from a tree stand approximately 10 feet. The patient had a chief complaint of bilat eral upper extremity weakness with hyperesthesia. Initial CT scan of the neck and thoracic spine did not demonstrate any bony abnormality; however, a CT scan of the cervical spine did raise concern for central cord lesion. Neurosurgery saw and evaluated the patient. On 05/27/2018, patient underwent operative stabilization of his C-spine with Dr. Carpenter. Postoperatively, the patient did well. He worked with physical therapy. He was tolerating a general diet and pain was controlled via p.o. agapito lgesics. Patient was deemed medically stable for discharge on 05/30/2018. DISCHARGE DISPOSITION: Home. DISCHARGE CONDITION: Good. PHYSICAL EXAMINATION: VITAL SIGNS: Temperature 98.8, pulse 80, respirations 18, O2 sat 100% on room air, blood pressure 12 3/79. GENERAL: Well-developed male in no acute distress, resting in bed. C-collar is in place. PULMONARY: Normal work of breathing, symmetric rise. CARDIOVASCULAR: Regular rate and rhythm. GASTROINTESTINAL: Abdomen is soft, nontender, nondistended. MUSCULOSKELETAL: Moves all extremities x4. Bilateral upper extremity paresthesias. NEUROLOGIC: No focal deficit is noted. DISCHARGE INSTRUCTIONS: Discharge instructions were provided to the patient and family who vocalized understanding prior to discharge. Patient should wear his C-collar at all times and [place] co llar for showering until cleared by Neurosurgery. He should not do any lifting, bending or twisting. He should continue to ambulate regularly. DISCHARGE MEDICATIONS: The patient was discharged home .
== END 2018-05-30 12:55 | disposition home or self-care (01) | DRG 29 ==
LOC: ERS 11:39 → SURG B 12:45
PROVIDERS: ADMIT Surgery; ATTEND Surgery
PROC: 00NW0ZZ Release Cervical Spinal Cord, Open Approach (ICD-10-PCS; principal; 2018-05-27)
PROC: 0RB30ZZ Excision of Cervical Vertebral Disc, Open Approach (ICD-10-PCS; 2018-05-27)
PROC: 0RG20K1 Fusion of 2 or more Cervical Vertebral Joints with Nonautologous Tissue Substitute, Posterior Approach, Posterior Column, Open Approach (ICD-10-PCS; 2018-05-27)
PROC: 0RG20A0 Fusion of 2 or more Cervical Vertebral Joints with Interbody Fusion Device, Anterior Approach, Anterior Column, Open Approach (ICD-10-PCS; 2018-05-27)
PROC: 0RG20AJ Fusion of 2 or more Cervical Vertebral Joints with Interbody Fusion Device, Posterior Approach, Anterior Column, Open Approach (ICD-10-PCS; 2018-05-27)
DX: S14.129A Central cord syndrome at unspecified level of cervical spinal cord, initial encounter (principal); N17.9 Acute kidney failure, unspecified; R20.3 Hyperesthesia; E11.22 Type 2 diabetes mellitus with diabetic chronic kidney disease; I12.9 Hypertensive chronic kidney disease with stage 1 through stage 4 chronic kidney disease, or unspecified chronic kidney disease; E78.5 Hyperlipidemia, unspecified; W17.89XA Other fall from one level to another, initial encounter; Y92.89 Other specified places as the place of occurrence of the external cause; S00.83XA Contusion of other part of head, initial encounter; N18.3 Chronic kidney disease, stage 3 (moderate); I25.10 Atherosclerotic heart disease of native coronary artery without angina pectoris; M48.02 Spinal stenosis, cervical region; R33.9 Retention of urine, unspecified; E83.39 Other disorders of phosphorus metabolism; Z79.82 Long term (current) use of aspirin; Z79.4 Long term (current) use of insulin; I25.2 Old myocardial infarction; Z95.5 Presence of coronary angioplasty implant and graft; Z83.3 Family history of diabetes mellitus; Z82.3 Family history of stroke
CPT/HCPCS: 36415; 36416; 70450; 72125; 72128; 72141; 72146; 76001; 80048; 83735; 84100; 85025; 85610; 85730; 96374; 96375; 96376; C1713; C1768; C1776; G0390; G8978-GP-CJ; G8979-GP-CJ; G8980-GP-CJ; G8987-GO-CI; G8987-GO-CJ; G8988-GO-CH; G8988-GO-CI; J0131; J0690; J1100; J1815; J1885; J2060; J2250; J2270; J2370; J3010; J3370; J3475; J3490; J7050

== ENCOUNTER 2018-06-09 09:58 | Outpatient (CLI) | payer OTHER ==
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
== END 2018-06-09 09:59 | disposition home or self-care (01) ==
LOC: TBSIIMAG 09:58
PROVIDERS: ATTEND Neurological Surgery
DX: M54.2 Cervicalgia (principal)
CPT/HCPCS: 72040

== ENCOUNTER 2018-07-23 15:18 | Outpatient (CLI) | payer OTHER ==
--- NOTE | 2018-07-23 17:03 | RAD ---
CERVICAL SPINE THREE VIEWS: 07/23/2018 HISTORY: Spondylosis without myelopathy. Evaluate following surgery. COMPARISON: 06/09/2018 FINDINGS: The patient is imaged while in a neck brace. Anterior diskectomy and fusion hardware is present at C 4-C5 and C5-C6. Bilateral laminectomy present at C3, C4, C5, and C6. Posterior fusion hardware on t he right noted at C4, C5, and C6. No significant interval change when compared to the 06/09/2018 exa m. Open-mouth odontoid view demonstrates a normal appearing dense and C1-C2 articulation. IMPRESSION: Stable multilevel postoperative change within the cervical spine, as above. POS: [facility]
== END 2018-07-23 15:19 | disposition home or self-care (01) ==
LOC: TBSIIMAG 15:18
PROVIDERS: ATTEND Neurological Surgery
DX: M47.812 Spondylosis without myelopathy or radiculopathy, cervical region (principal); Z98.1 Arthrodesis status
CPT/HCPCS: 72040